=== PATIENT | female | born 1990 ===

== ENCOUNTER 2021-07-16 10:53 | Emergency (ER) | payer OTHER ==
[~2021-07-16] VITALS: Ht 160 cm; Wt 56.7 kg
[~2021-07-16 10:53] MED LIST: PRENATABS RX T1 EACH PO; PROMETHAZINE D118 ML PO
== END 2021-07-16 13:49 | disposition home or self-care (01) ==
LOC: ER 10:53
DX: O20.9 Hemorrhage in early pregnancy, unspecified (principal); Z3A.01 Less than 8 weeks gestation of pregnancy

== ENCOUNTER 2021-12-24 09:46 | Outpatient (CLI) | payer OTHER | END 2021-12-24 10:29 | disposition home or self-care (01) | LOC: PRENATAL 09:46 | PROVIDERS: ATTEND Obstetrics & Gynecology Maternal & Fetal Medicine | DX: Z03.79 Encounter for other suspected maternal and fetal conditions ruled out (principal) ==

== ENCOUNTER 2022-01-11 15:11 | Outpatient (CLI) | payer OTHER | END 2022-01-11 17:30 | disposition home or self-care (01) | LOC: PRENATAL 15:11 | PROVIDERS: ATTEND Obstetrics & Gynecology Maternal & Fetal Medicine | DX: O35.0XX0 Maternal care for (suspected) central nervous system malformation in fetus, not applicable or unspecified (principal); O35.3XX0 Maternal care for (suspected) damage to fetus from viral disease in mother, not applicable or unspecified; O28.1 Abnormal biochemical finding on antenatal screening of mother; Z3A.21 21 weeks gestation of pregnancy ==

== ENCOUNTER 2022-05-17 09:24 | Inpatient (IN) | payer OTHER ==
[~2022-05-17] VITALS: Ht 160 cm; Wt 66.2 kg
[2022-05-17] MEDS ORDERED: PRENATAL TABLE1 EAC1 (14:26)
[2022-05-17] MEDS ORDERED: AMPICILLIN SOD500 MG (14:27)
== END 2022-05-19 14:01 | disposition home or self-care (01) | DRG 807 ==
LOC: OB/GYN 09:24 → LDR 09:24 → OB/GYN 12:29
PROVIDERS: ADMIT Obstetrics & Gynecology; ATTEND Obstetrics & Gynecology
PROC: 10E0XZZ Delivery of Products of Conception, External Approach (ICD-10-PCS; principal; 2022-05-17)
PROC: 0KQM0ZZ Repair Perineum Muscle, Open Approach (ICD-10-PCS; 2022-05-17)
PROC: 4A1HXCZ Monitoring of Products of Conception, Cardiac Rate, External Approach (ICD-10-PCS; 2022-05-17)
DX: O70.1 Second degree perineal laceration during delivery (principal); Z37.0 Single live birth; Z3A.39 39 weeks gestation of pregnancy; Z20.822 Contact with and (suspected) exposure to COVID-19